=== PATIENT | male | born 1990 | race Caucasian/White ===

== ENCOUNTER 2019-04-08 15:50 | Emergency (ER) | payer BC ==
[~2019-04-08] VITALS: Ht 188 cm; Wt 78.9 kg
== END 2019-04-08 18:08 | disposition home or self-care (01) ==
LOC: ER 15:50
DX: S60.212A Contusion of left wrist, initial encounter (principal); V00.131A Fall from skateboard, initial encounter; Y93.89 Activity, other specified; Y92.89 Other specified places as the place of occurrence of the external cause; Y99.8 Other external cause status

== ENCOUNTER 2019-05-20 07:10 | Emergency (ER) | payer BC ==
[~2019-05-20] VITALS: Ht 188 cm; Wt 79.8 kg
== END 2019-05-20 10:32 | disposition home or self-care (01) ==
LOC: ER 07:10
DX: S92.412A Displaced fracture of proximal phalanx of left great toe, initial encounter for closed fracture (principal); W22.8XXA Striking against or struck by other objects, initial encounter; Y93.66 Activity, soccer; Y92.830 Public park as the place of occurrence of the external cause; Y99.8 Other external cause status

== ENCOUNTER 2019-06-04 16:29 | Emergency (ER) | payer BC ==
[~2019-06-04] VITALS: Ht 188 cm; Wt 77.1 kg
== END 2019-06-04 22:57 | disposition home or self-care (01) ==
LOC: ER 16:29
DX: K52.89 Other specified noninfective gastroenteritis and colitis (principal)

== ENCOUNTER 2020-12-17 05:20 | Emergency (ER) | payer BC ==
[~2020-12-17] VITALS: Ht 188 cm; Wt 77.1 kg
== END 2020-12-17 09:39 | disposition home or self-care (01) ==
LOC: ER 05:20
DX: R06.02 Shortness of breath (principal); R00.2 Palpitations; Z03.818 Encounter for observation for suspected exposure to other biological agents ruled out

== ENCOUNTER 2021-01-01 12:04 | Emergency (ER) | payer BC ==
[~2021-01-01] VITALS: Ht 188 cm; Wt 77.1 kg
== END 2021-01-01 17:04 | disposition home or self-care (01) ==
LOC: ER 12:04 → CPU-OBS 12:07 → ER 12:07
DX: R07.89 Other chest pain (principal); Z03.818 Encounter for observation for suspected exposure to other biological agents ruled out

== ENCOUNTER → 2021-03-01 | Emergency (ER) | payer BC ==
[~2021-03-01] VITALS: Ht 188 cm; Wt 79.4 kg
[~2021-03-01] MED LIST: ACETAMINOPHEN325 M1; AMOX-CLAV 875-1 EACH PO; INTESTINEX680 M2 PO; NAPROXEN500 MG PO
== END | disposition home or self-care (01) ==
LOC: ER 00:07
DX: S90.122A Contusion of left lesser toe(s) without damage to nail, initial encounter (principal); H92.01 Otalgia, right ear; W22.8XXA Striking against or struck by other objects, initial encounter; Y93.89 Activity, other specified; Y92.89 Other specified places as the place of occurrence of the external cause; Y99.8 Other external cause status

== ENCOUNTER 2022-01-29 23:04 | Emergency (ER) | payer BC ==
[~2022-01-29] VITALS: Ht 188 cm; Wt 77.1 kg
[2022-01-30] MEDS ORDERED: KETO10TA2 PO (01:40)
== END 2022-01-30 02:08 | disposition home or self-care (01) ==
LOC: ER 23:04
DX: G56.02 Carpal tunnel syndrome, left upper limb (principal); M25.532 Pain in left wrist; Z20.822 Contact with and (suspected) exposure to COVID-19

== ENCOUNTER 2022-07-13 22:35 | Emergency (ER) | payer BC ==
[~2022-07-13] VITALS: Ht 188 cm; Wt 79.4 kg
[~2022-07-13 22:35] MED LIST changes: +KETO10TA2 PO
== END 2022-07-14 00:21 | disposition home or self-care (01) ==
LOC: ER 22:35
DX: K06.8 Other specified disorders of gingiva and edentulous alveolar ridge (principal)

== ENCOUNTER 2022-09-02 10:25 | Emergency (ER) | payer BC ==
[~2022-09-02] VITALS: Ht 188 cm; Wt 77.1 kg
== END 2022-09-02 14:08 | disposition home or self-care (01) ==
LOC: ER 10:25
DX: R07.0 Pain in throat (principal); Z20.822 Contact with and (suspected) exposure to COVID-19